=== PATIENT | female | born 1935 | race Caucasian/White ===

== ENCOUNTER 2018-06-16 11:31 | Outpatient (RCR) | payer MEDICARE, BC | END 2018-07-10 | disposition home or self-care (01) | LOC: WCC 11:31 | DX: L97.822 Non-pressure chronic ulcer of other part of left lower leg with fat layer exposed (principal); M79.81 Nontraumatic hematoma of soft tissue; Z96.653 Presence of artificial knee joint, bilateral; M19.90 Unspecified osteoarthritis, unspecified site; Z88.0 Allergy status to penicillin | CPT/HCPCS: G0463 ==